=== PATIENT | female | born 1975 | race Caucasian/White ===

== ENCOUNTER 2017-08-26 15:39 | Emergency (ER) | payer MEDICAID ==
[~2017-08-26] VITALS: Ht 165.1 cm; Wt 70.3 kg
[2017-08-26 15:56] VITALS: Ht 165.1 cm; Wt 70.3 kg
[2017-08-26 17:12] LABS: BASOPHIL % 0.3 % (0-2)
[2017-08-26 17:28] LABS: PLATELET COUNT 425 x10^3mcL (130-400); RED CELL DISTRIBUTION WIDTH 21.3 % (11.5-14.5)
[2017-08-26 17:37] LABS: rbc morphology (normal/abnorm) ABNORMAL (NORMAL)
[2017-08-26 18:28] VITALS: BP 112/70
== END 2017-08-26 18:57 | disposition home or self-care (01) ==
LOC: ED 15:39
PROVIDERS: Emergency Medicine
DX: J02.9 Acute pharyngitis, unspecified (principal); D64.9 Anemia, unspecified; F41.9 Anxiety disorder, unspecified
CPT/HCPCS: 36415; J0561; Q0092

== ENCOUNTER 2018-03-17 15:06 | Emergency (ER) | payer MEDICAID ==
[~2018-03-17] VITALS: Ht 167.6 cm; Wt 70.3 kg
[2018-03-17 15:20] VITALS: Ht 167.6 cm; Wt 70.3 kg
[2018-03-17 17:27] VITALS: BP 129/79
== END 2018-03-17 17:27 | disposition home or self-care (01) ==
LOC: ED 15:06
DX: H66.92 Otitis media, unspecified, left ear (principal); J02.9 Acute pharyngitis, unspecified; F41.9 Anxiety disorder, unspecified; Z86.2 Personal history of diseases of the blood and blood-forming organs and certain disorders involving the immune mechanism